=== PATIENT | male | born 1975 | race Two or more races ===

== ENCOUNTER 2021-12-21 12:04 | Emergency (ER) | payer OTHER ==
[~2021-12-21] VITALS: Ht 180.3 cm; Wt 78.9 kg
[2021-12-21] MEDS ORDERED: OMEPRAZOLE MAGN20 MG PO (12:50)
[2021-12-21] MEDS ORDERED: INTESTINEX680 M1 PO (12:50)
[2021-12-21] MEDS ORDERED: PEPCID AC20 MG PO (21:16)
[2021-12-21] MEDS ORDERED: LEVSIN/SL0.125 MG SL (21:16)
[2021-12-21] MEDS ORDERED: METRONIDAZOLE500 MG PO (21:16)
== END 2021-12-21 21:41 | disposition home or self-care (01) ==
LOC: ER 12:04 → EDBD 12:07 → ER 12:07
DX: R10.9 Unspecified abdominal pain (principal)